=== PATIENT | male | born 1930 | race Asian ===

== ENCOUNTER 2017-10-07 07:15 | Emergency (ER) | payer MEDICARE, MEDICAID ==
[~2017-10-07] VITALS: Ht 160 cm; Wt 72.6 kg
[2017-10-07 07:19] VITALS: BP 90/53
[2017-10-07 07:53] VITALS: BP 100/50
--- NOTE | 2017-10-07 08:17 | Emergency Room Report ---
History of Present Illness General Chief Complaint: Generalized Weakness Source: Patient Present Illness HPI This 86 Mongolian speaking only male c/o generalized weakness. He was waiting at the bus stop but felt weak and called ambulance. 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 What I understand is that the patient is generally weak, not one-sided weakness, more like a general tiredness. He did not have LOC, denies dizziness/spinning sensation. He denies specific pain such as chest pain, abd pain, headache. He denies vomiting. States able to tolerate po without difficulty, denies difficulty bm/urine. Denies fever. He admits to less po intake due to mild general malaise. PMH: he had some type of "heart" or "aneurysm" surgery within the past year, there is a horizontal scar at left clavicle area. (?carotid?) Meds: denies Social: lives alone Hospitalized last year for above surgery. Allergies: Coded Allergies: No Known Allergies (Unverified , 10/07/17) Patient History Limited by: language barrier, age Nursing Documentation-PMH Past Medical History: No Stated History Review of Systems Constitutional: Reports: no symptoms, see HPI Eye: Reports: no symptoms ENT: Reports: no symptoms Respiratory: Reports: no symptoms Cardiovascular: Reports: no symptoms Gastrointestinal: Reports: no symptoms Genitourinary: Reports: no symptoms Musculoskeletal: Reports: no symptoms Skin: Reports: no symptoms Psychiatric: Reports: no symptoms Neurological: Reports: no symptoms, see HPI Endocrine: Reports: no symptoms Hematologic/Lymphatic: Reports: no symptoms Allergic: Reports: no symptoms Physical Exam Vital Signs Date Time Temp Pulse Resp B/P (MAP) Pulse Ox O2 Delivery O2 Flow Rate FiO2 10/07/17 07:09 98.2 80 20 90/53 100 Room Air 98.2 Sp02 EP Interpretation: reviewed, normal General Appearance: normal inspection, well appearing, no apparent distress, alert, GCS 15, non-toxic Head: normocephalic, atraumatic Eyes: bilateral eye normal inspection, bilateral eye PERRL, bilateral eye EOMI ENT: normal ENT inspection, hearing grossly normal, normal pharynx, no angioedema, normal voice, moist mucus membranes Neck: normal inspection, full range of motion, supple, no meningismus, no bony tend, other - left horizontal two inch scar intersection neck/thorax Respiratory: normal inspection, lungs clear, normal breath sounds, no rhonchi, no respiratory distress, no retraction, no accessory muscle use, no wheezing Cardiovascular #1: normal inspection, regular rate, rhythm, no edema Gastrointestinal: normal inspection, normal bowel sounds, non tender, soft, no mass, non-distended Musculoskeletal: gait/station normal, normal range of motion Neurologic: normal inspection, alert, oriented x3, responsive, motor strength/ tone normal Psychiatric: normal inspection, judgement/insight normal, memory normal Suicide Risk Assessment: Suicidal Ideation: No Had intent to initiate attempt: No Pt's plan for suicide attempt: No Has means to complete attempt: No Skin: normal inspection, normal color, no rash, warm/dry Medical Decision Making ER Course after one liter NS patient feels better; he is ambulatory around ed. renal abnorm noted, there are no old records here. pt. unaware if he has kidney problems or not. i gave copies of report and advised to d/w pmd within a few days. return for further problems. EKG Diagnostic Results EKG Time: 08:00 Rate: normal Rhythm: NSR ST Segments: no acute changes Other Impression first degree AVB ASA given to the pt in ED: No Rhythm Strip Diag. Results Rhythm Strip Time: 08:17 EP Interpretation: yes Rhythm: NSR Chest X-Ray Diagnostic Results Chest X-Ray Diagnostic Results : Chest X-Ray Ordered: Yes # of Views/Limited/Complete: 1 View Indication: Other EP Interpretation: Yes Interpretation: no consolidation, no effusion, no pneumothorax Impression: No acute disease Last Vital Signs Date Time Temp Pulse Resp B/P (MAP) Pulse Ox O2 Delivery O2 Flow Rate FiO2 10/07/17 07:53 72 20 100/50 96 Room Air 10/07/17 07:19 98.2 98.2 Disposition: HOME, SELF-CARE Condition: Improved Referrals: NON PHYSICIAN (PCP) Santo Dawkins M.D. Oct 07, 2017 08:17
[2017-10-07 08:22] LABS: BASOPHILS % (AUTO) 0.5 % (0.0-2.0); EOSINOPHILS % (AUTO) 4.9 % (0.0-3.0); HEMATOCRIT 33.9 % (42.0-52.0); HEMOGLOBIN 11.3 G/DL (14.2-18.0); LYMPHOCYTES % (AUTO) 6.1 % (20.0-45.0); MEAN CORPUSCULAR VOLUME 97 FL (80-99); MONOCYTES % (AUTO) 7.2 % (1.0-10.0); NEUTROPHILS % (AUTO) 81.4 % (45.0-75.0); PLATELET COUNT 128 K/UL (150-450); RED BLOOD COUNT 3.49 M/UL (4.70-6.10); WHITE BLOOD COUNT 11.3 K/UL (4.8-10.8)
[2017-10-07 08:44] LABS: ANION GAP 10 mmol/L (5-15); BLOOD UREA NITROGEN 39 mg/dL (7-18); CARBON DIOXIDE 24 MMOL/L (21-32); CHLORIDE 102 MMOL/L (98-107); CREATININE 2.6 MG/DL (0.55-1.30); SODIUM 136 MMOL/L (136-145)
[2017-10-07 08:49] LABS: ALANINE AMINOTRANSFERASE 18 U/L (12-78); ALBUMIN 3.4 G/DL (3.4-5.0); ALBUMIN/GLOBULIN RATIO 0.9 (1.0-2.7); ALKALINE PHOSPHATASE 59 U/L (46-116); ASPARTATE AMINO TRANSFERASE 11 U/L (15-37); BILIRUBIN,TOTAL 0.5 MG/DL (0.2-1.0)
--- NOTE | 2017-10-07 09:00 | Diagnostic Imaging Report ---
Indication: Bilateral leg weakness Technique: spiral acquisitions obtained through the brain. Angled axial and coronal 5 x 5 mm slices were reconstructed. No IV contrast utilized. Radiation dose was minimized using automated exposure control Total dose length product 1383.12 mGycm. CTDIvol(s) 70.38 mGy Comparison: none FINDINGS: No acute hemorrhage or edema. No mass effect or midline shift. There is age-related enlargement of the ventricles and extra axial CSF spaces. There is periventricular deep white matter ischemic change. Normal vu-white differentiation. There is a focus of encephalomalacia in the left posterior parasagittal parietal lobe consistent with an old cortical infarct. Visualized orbits are unremarkable. There is minimal ethmoid sinus mucosal disease. Intact calvarium. IMPRESSION: Chronic and age-related changes. 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 Sinus disease The CT scanner at [facility] is accredited by the [employer] and the scans are performed using protocols designed to limit radiation exposure to as low as reasonably achievable to attain images of sufficient resolution adequate for diagnostic evaluation
[2017-10-07 09:29] LABS: APPEARANCE,URINE CLEAR; BILIRUBIN, URINE NEGATIVE (NEGATIVE); COLOR,URINE PALE YELLOW; GLUCOSE, URINE (UA) 1+ (NEGATIVE); KETONES,URINE NEGATIVE (NEGATIVE); LEUKOCYTE ESTERASE ,URINE NEGATIVE (NEGATIVE); NITRITE,URINE NEGATIVE (NEGATIVE); PH,URINE 5 (4.5-8.0); PROTEIN,URINE 2+ (NEGATIVE); UROBILINOGEN,URINE NORMAL MG/DL (0.0-1.0)
[2017-10-07 10:05] VITALS: BP_SYST 100; BP_SYST 135; BP_DIAS 50; BP_DIAS 64
--- NOTE | 2017-10-07 12:28 | Diagnostic Imaging Report ---
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 There is thoracic aortic endograft in place. There is some atelectasis at both lung bases, left greater than right. Lungs and pleural spaces are otherwise clear. 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
--- NOTE | 2017-10-08 15:40 | Cardiology Report ---
APPROVED REPORT EKG Measurement Heart [id number] Sinus rhythm with 1st degree AV block Otherwise normal ECG
== END 2017-10-07 10:05 | disposition home or self-care (01) ==
LOC: EDBD 07:15 → EMR 08:09
DX: R53.1 Weakness (principal); J32.9 Chronic sinusitis, unspecified
CPT/HCPCS: 36415; 70450; 71045; 80053; 81003; 84484; 85025; 93005; 96360; 99284